=== PATIENT | female | born 1970 | race Caucasian/White ===

== ENCOUNTER 2021-01-17 11:49 | Outpatient (REF) | payer OTHER, SELFPAY | END 2021-01-17 11:50 | disposition home or self-care (01) | LOC: HO.LAB 11:49 | PROVIDERS: Visit Provider Internal Medicine | DX: Z20.822 Contact with and (suspected) exposure to COVID-19 (principal) | CPT/HCPCS: C9803; U0003; U0005 ==

== ENCOUNTER 2021-05-03 10:08 | Outpatient (REF) | payer OTHER, SELFPAY ==
[2021-05-03 12:21] LABS: COVID-19 Test Negative (Negative)
== END 2021-05-03 10:09 | disposition home or self-care (01) ==
LOC: HO.LAB 10:08
PROVIDERS: Visit Provider Internal Medicine
DX: Z20.822 Contact with and (suspected) exposure to COVID-19 (principal)
CPT/HCPCS: 87635; C9803